=== PATIENT | born 2005 | race Caucasian/White ===

== ENCOUNTER → 2025-07-30 10:16 | Outpatient (BNVA) | payer MEDICAID, SELFPAY | PROVIDERS: Referring Provider Family Medicine; Visit Provider Internal Medicine Rheumatology | DX: M54.50 Low back pain, unspecified (principal); M79.673 Pain in unspecified foot; M25.50 Pain in unspecified joint | CPT/HCPCS: 36415; 72100; 73630; 80076; 82306; 82565; 83520; 85025; 85651; 86140; 86812; 99204 ==

== ENCOUNTER 2025-09-17 07:30 | Outpatient (CLI) | payer MEDICAID, SELFPAY ==
--- NOTE | 2025-09-17 08:00 | MR_ITS ---
WS: [id number] MRI LUMBAR SPINE NONCONTRAST TECHNIQUE: Sagittal T1, T2 and STIR imaging. Axial T1 and T2 imaging. CLINICAL INFORMATION: M54.50 - Low back pain, unspecified COMPARISON: Radiograph 07/30/2025 FINDINGS: Mild lumbar curve. No acute compression. No high-grade central canal stenosis. A few Schmorl's nodes in the lower thoracic and upper lumbar spine. 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 Suspected bilateral pars defects although difficult to further assess on this study. This to be better assessed with CT. No significant anterolisthesis. L1-L2: Normal. L2-L3: Normal. L3-L4: No significant disc bulging. Spinal canal and foramen are patent. L4-L5: No significant disc bulging. Spinal canal and foramen are patent. L5-S1: Shallow RIGHT paracentral disc bulging. Slight effacement of the RIGHT ventral thecal sac. Slight encroachment on the exiting RIGHT L5 nerve root. Spinal canal and foramen are patent. Mild to moderate facet arthropathy. Visualized pelvic bony structures: Normal. Paravertebral soft tissues: Normal. MR/MR lumbar spine wo con* [id number] IMPRESSION: 1. 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 2. Suspected bilateral pars defects L5-S1. This would be better assessed with CT for better anatomic detail. No significant anterolisthesis. 3. Mild disc bulging L5-S1 eccentric to the RIGHT with slight contact of the e xiting RIGHT L5 nerve root. Slight narrowing of the RIGHT subarticular recess. 4. Mild-moderate arthropathy L5-S1 with tiny facet effusions. 5. No other acute findings.
== END 2025-09-17 07:31 | disposition home or self-care (01) ==
LOC: RAD 07:32
PROVIDERS: Visit Provider Internal Medicine Rheumatology
DX: M54.50 Low back pain, unspecified (principal); M21.611 Bunion of right foot; M21.612 Bunion of left foot; M20.41 Other hammer toe(s) (acquired), right foot; M20.42 Other hammer toe(s) (acquired), left foot
CPT/HCPCS: 72148; 99204

== ENCOUNTER → 2025-09-27 08:26 | Outpatient (BNVA) | payer MEDICAID, SELFPAY | PROVIDERS: PCP Family Medicine; Visit Provider Orthopaedic Surgery | DX: M43.06 Spondylolysis, lumbar region (principal); M51.370 Other intervertebral disc degeneration, lumbosacral region with discogenic back pain only | CPT/HCPCS: 72110; 99203 ==